=== PATIENT | female | born 1960 | race Caucasian/White ===

== ENCOUNTER → 2024-07-03 | Outpatient (CLI) | payer MEDICARE, MEDICAID, SELFPAY ==
--- NOTE | 2024-07-03 11:45 | XR_ITS ---
Examination: Screening digital mammography, bilateral Computer aided detection 3-D breast Tomosynthesis, bilateral Date and time of exam: July 03, 2024 1135 hrs. No priors Indication: Screening Technique: Nonmagnified MLO, CC views of the breasts to been obtained, reconstructed from 3-D Tomosynthesis images. R2 computer aided detection program utilized for evaluation of suspicious masses and/or abnormal calcifications. 3-D Tomosynthesis images obtained. Findings: Scattered areas of fibroglandular density 12 mm oval asymmetry upper outer right breast Benign calcifications Impression: BI-RADS Category 0: Incomplete: Need additional imaging evaluation 12 mm ovary asymmetry upper outer right breast, recommend follow-up spot tomographic views of this asymmetry as well as right breast sonography to complete the workup
--- NOTE | 2024-07-03 12:00 | XR_ITS ---
Examination: Bone densitometry Date and time of exam:July 03, 2024 1150 hours INDICATIONS: Menopause age 47, family history sister brother osteoporosis Technique: Lumbar spine and hip total bone mineralization values of an calculated. Peak reference and age match control results have been displayed. Findings: Lumbar spine total bone mineralization is0.735 gm/cm2. This is 2.8 standard deviations below peak reference. This is 1.1 standard deviations below age-matched controls. Hip total bone mineralization is 0.686 gm/cm2 This is 2.1 standard deviations below peak reference. This is 0.9 standard deviations below age-matched controls Impression: There is osteoporosis based on lumbar spine measurements. There is osteoporosis based on hip measurements
== END | disposition home or self-care (01) ==
LOC: CDIM 11:22
PROVIDERS: Referring Provider Family Medicine; Visit Provider Family Medicine
DX: Z12.31 Encounter for screening mammogram for malignant neoplasm of breast (principal); N64.89 Other specified disorders of breast; M81.0 Age-related osteoporosis without current pathological fracture
CPT/HCPCS: 77063; 77067; 77080

== ENCOUNTER 2024-07-13 07:55 | Day surgery (SDC) | payer MEDICARE, MEDICAID, SELFPAY ==
[2024-07-10 14:16] VITALS: BMI 29.2
[2024-07-13] VITALS (14 sets, daily range): BP systolic 93–166; BP diastolic 55–80; PULSE 49–83; RESP 12–24; TEMP 36.4–36.6; O2SAT 95–100; BMI 29.7
[2024-07-13] MEDS: fentaNYL CIT INJ 50 mCg/ML AMP 2ML (ASD USE ONLY) IV (10:01)
[2024-07-13] MEDS: ONDANSETRON INJ 2 MG/ML INJ 2 ML 4 MG IV (10:04)
[2024-07-13] MEDS: DiphenhydrAMINE INJ 50 MG/ML VIAL 25 MG IV (10:06)
[2024-07-13] MEDS: MIDAZOLAM INJ 1 MG/ML VIAL 2 ML (ASD USE ONLY) 2 MG IV (10:14)
[2024-07-13] MEDS: MEPERIDINE INJ 25 MG/ML VIAL (ASD USE ONLY) IV (10:20)
== END 2024-07-13 11:15 | disposition home or self-care (01) ==
PROVIDERS: Referring Provider Specialist; Visit Provider Specialist
PROC: 0DBE8ZX Excision of Large Intestine, Via Natural or Artificial Opening Endoscopic, Diagnostic (ICD-10-PCS; CPT 45380; principal; 2024-07-13 13:15)
PROC: (CPT 43239; 2024-07-13 13:15)
DX: K64.9 Unspecified hemorrhoids (principal); K57.30 Diverticulosis of large intestine without perforation or abscess without bleeding; K31.89 Other diseases of stomach and duodenum
CPT/HCPCS: 45378; A4649; J1200; J2175; J2250; J2405; J3010

== ENCOUNTER → 2024-07-24 | Outpatient (CLI) | payer MEDICARE, MEDICAID, SELFPAY ==
--- NOTE | 2024-07-24 10:30 | XR_ITS ---
Examination: Breast ultrasound, unilateral, right complete Date and time of exam: July 24, 2024 1016 hours INDICATIONS: Mammogram July 03, 2024 12 mm focal asymmetry upper outer right breast Technique: Real-time evans scale ultrasonographic imaging performed right breast including all 4 quadrants as well as nipple retroareolar and axillary region. Findings: No cystic or solid mass IMPRESSION: BI-RADS Category 1: Negative study
--- NOTE | 2024-07-24 11:15 | XR_ITS ---
Examination: Diagnostic digital mammography, unilateral, right Computer aided detection 3-D breast Tomosynthesis, unilateral Date and time of exam: July 24, 2024 1034 hours INDICATIONS: Mammogram July 03, 2024 12 mm focal asymmetry outer right breast Technique: Nonmagnified MLO, CC views of the right breast have been obtained, reconstructed from 3-D Tomosynthesis images. R2 computer aided detection program utilized for evaluation of suspicious masses and/or abnormal calcifications. 3-D Tomosynthesis images obtained. Findings: Scattered areas of fibroglandular density Focal asymmetry remains upper outer right breast, probably benign glandular tissue Impression: BI-RADS category 3: Probably benign findings One additional 6 month right mammogram follow-up is needed to document stability of focal asymmetry described above
== END | disposition home or self-care (01) ==
PROVIDERS: PCP Family Medicine; Referring Provider Family Medicine; Visit Provider Family Medicine
DX: R92.331 Mammographic heterogeneous density, right breast (principal); N64.89 Other specified disorders of breast
CPT/HCPCS: 76641; 77061; 77065; G0279

== ENCOUNTER 2024-07-25 23:30 | Emergency (ER) | payer SELFPAY ==
[2024-07-26 00:05] VITALS: BP 133/74; PULSE 64; RESP 16; TEMP 36.5; O2SAT 95
--- NOTE | 2024-07-26 00:09 | XR_ITS ---
Examination: Knee, left , 3 views Technique: Knee AP, lateral, oblique 3 views Date and time of exam: July 26, 2024 at 0019 hrs. Indications: Patient fell last evening with injury to the knee, knee pain Findings: Severe osteopenia Tiny opacities which may be on the skin medial knee Acute fracture traversing the mid patella with up to 14 mm separation at the fracture site Possible small fracture fragments also at the lower margin of the patella Significant blood in the joint space Impression: Patellar fractures as above
--- NOTE | 2024-07-26 00:09 | PD.EDFALL ---
ED Fall Injury RME/HPI General Chief Complaint: Extremity Injury, Lower Stated Complaint: KNEE PAIN Time Seen by Provider: 07/26/24 00:08 Source: patient and EMS Arrival date/time: 07/26/24 00:04 Mode of arrival: EMS Limitations: no limitations RME / HPI RME / HPI Narrative: Dr. Samayoa?s Main ED Evaluation: 63-year-old female who presents to the emergency department with complaints of left knee pain and swelling following a fall. She states that she landed with the impact primarily affecting her left knee. Since the fall, she has experienced significant pain and swelling in the knee, limiting her mobility. The patient denies any trauma to the head, head strike, or loss of consciousness. She also denies neck pain or any other associated injuries. There are no focal neurological complaints, including weakness, numbness, or tingling in the extremities. She does not report any dizziness, confusion, or instability prior to the fall. Related Data Home Medications ?Medication ?Instructions ?Recorded ?Confirmed aspirin 81 mg tablet,delayed 81 mg PO QDAY 05/25/19 07/13/24 release (Aspir-) atorvastatin 40 mg tablet 40 mg PO QPM 05/25/19 07/13/24 carvedilol 3.125 mg tablet 3.125 mg PO BID 05/25/19 07/13/24 coQ10 (ubiquinol) 200 mg capsule 200 mg PO HS 05/25/19 07/13/24 tiotropium bromide 18 mcg capsule 1 cap inhalation QDAY 05/25/19 07/13/24 with inhalation device (Spiriva with HandiHaler) Previous Rx's ?Medication ?Instructions ?Recorded hydrocodone 5 mg-acetaminophen 300 1 tab PO Q6H PRN Left patella 07/26/24 mg tablet Fracture #14 tabs Allergies Allergy/AdvReac Type Severity Reaction Status Date / Time ciprofloxacin Allergy Mild itching, Verified 07/13/24 08:56 morphine AdvReac Intermediate ABDOMINAL Verified 07/13/24 08:56 PAIN Review of Systems Review of Systems Systems Reviewed: All systems reviewed, normal except as documented Past Medical History Past Medical History NEUROLOGIC: Negative Neurological Disorders or Seizures CARDIAC: Positive Cardiac Disorders, Hypercholesterolemia, Congestive Heart Failure and Hypertension RESPIRATORY: Positive Chronic Obstructive Pulmonary Disease (COPD) GASTROINTESTINAL: Positive Gastrointestinal Disorders, Gall Bladder Disease, Diverticulitis and Gastroesophageal Reflux Disease GENITOURINARY: Positive Genitourinary Disorders; Negative Renal Disease REPRODUCTIVE: Positive Previous Pregnancies MUSCULOSKELETAL: Positive Musculoskeletal Disorders, Osteoporosis and Fractures ENDOCRINE: Negative Endocrine Disorders, Diabetes Mellitus Type 1 or Diabetes Mellitus Type 2 HEMATOLOGIC: Negative Blood Disorders OTHER HISTORY: Positive Hospitalization, Blood Transfusion Reaction and Rubella ([place] Measles); Negative Shingles, Falls, Anesthesia Reactions or Cancer Family History FAMILY HISTORY: Positive Family Cardiac Disorders, Family Cancer and Family Surgery; Negative Family Respiratory Disorders or Family Anesthesia Reaction Surgical History SURGICAL: Positive Angiogram, Abdominal Surgery and Tubal Ligation Social History SMOKING STATUS: Former smoker SUBSTANCE USE: does not use ED Exam Narrative Physical exam: GENERAL APPEARANCE: alert and oriented x 4, well-developed, well-nourished, no acute distress VITALS: All vitals were reviewed and the pulse ox is 95% on room air, which is normal according to my interpretation. HEENT: Normocephalic, atraumatic; pupils equal, round, reactive to light; EOMI; mucous membranes pink, moist; oropharynx clear NECK: Supple LUNGS: CTABL; no wheezes, no rales, no rhonchi HEART: Regular rate, regular rhythm; normal S1, S2; no murmurs ABDOMEN: non distended; normal BS; soft, no tenderness, no guarding, no rebound; no masses, no organomegaly, no hernia BACK: no CVA tenderness EXTREMITIES: atraumatic; no edema. Tenderness and swelling of the left knee. There are no signs of contusion, abrasion, laceration, or discoloration NEUROLOGIC: awake; alert and oriented x4; cranial nerves II-XII grossly intact; no focal sensory or motor deficits PSYCHIATRIC: appropriate mood and affect SKIN: warm, dry, normal color; no rashes General Limitations: Present no limitations Course Quality Measures none Orders Category Date Time Status Miscellaneous Nursing Order NOW Care 07/26/24 00:57 Completed XR knee LT 3V Stat Exams 07/26/24 00:09 Taken HYDROmorphone INJ [Dilaudid Inj] Med 07/26/24 01:07 Discontinued 1 mg IVP X1 ONE Vital Signs Vital signs: Vital Signs Temperature 97.7 F 07/26/24 00:05 Pulse Rate 64 07/26/24 00:05 Respiratory Rate 16 07/26/24 00:05 Blood Pressure 133/74 H 07/26/24 00:05 Pulse Oximetry (%) 95 07/26/24 00:05 Oxygen Delivery Method Room Air 07/26/24 00:05 Fall MDM Narrative MDM Narrative:: Scribe Attestation: I, Mike Altamiranoang, am scribing for and in the presence of Dr. Samayoa. Provider Notation: Although this document has been carefully reviewed, there may still be some phonetic and other typographical errors. These errors are purely grammatical due to imperfections in the software program and should not be construed in any way to compromise the substance of the patient's medical care during this visit. Patient data External records reviewed:: [facility] previous records and EMS form Clinical information provided by:: patient and EMS Social determinants that could affect healthcare access:: none Patient has the following chronic illnesses:: see PMH How is presenting disease/condition affected by chronic disease/condition?: uneffected by Evaluation data The following diagnostics were reviewed and interpreted by me:: radiology exam(s) Lab and/or radiology exams considered but not ordered:: n/a Interpretation Summary: I personally reviewed the radiology data and agree with the radiologist's interpretation. LT Knee XR, interpreted by me, left displaced patella fracture Medications / Prescriptions Medications or Prescriptions considered but not ordered:: n/a Medication administrations:: Medication Administration History Discontinued Medications Hydromorphone HCl (Hydromorphone Inj 2 Mg/Ml Vial) 1 mg IVP X1 ONE Stop: 07/26/24 01:08 Last Admin: 07/26/24 01:11 Dose: 1 mg Documented By: CB as above, if any Consultations Consultation(s) initiated? (list below): Yes Consultation #1 (Physician, Specialty, Details): Dr. Rodgers, on-call ortho, made aware of the patient?s HPI, PMHx, lab and/or radiology results. Treatment plan was discussed. Recommendation for knee immobilizer, crutches, discharge and follow-up in his office on Saturday at 2PM. Time: 01:00 Diagnosis Fall Differential Diagnosis: other (knee fracture, knee dislocation, patella dislocation, joint effusion, and contusion) Most likely diagnosis given after review of the tests above:: see clinical impression below Admission Indicated Admission indicated?: not indicated Admission Request Was there a request for admission?: No Disposition Plan Disposition Plan: Discharge Discharge Attestation Discharge Attestation: The patient and all family members were given an opportunity to ask questions and understood the discharge instructions. Discharge instructions specifically effects, indications for sooner follow up or return to the emergency department, and the expected course of current diagnosis. Patient condition: Stable Discharge Plan Plan Patient Disposition: HOME (Self Care) Disposition Comment: Stable for discharge Patient condition on transfer: Stable Prescriptions/Referrals Prescriptions/Med Rec: New hydrocodone-acetaminophen 5-300 mg tablet 1 tab PO Q6H MDD 4 tabs PRN (Reason: Left patella Fracture) Qty: 14 0RF No Action atorvastatin 40 mg Tablet 40 mg PO QPM aspirin [Aspir-81] 81 mg Tablet,Delayed Release (Dr/Ec) 81 mg PO QDAY carvedilol 3.125 mg Tablet 3.125 mg PO BID tiotropium bromide [Spiriva with HandiHaler] 18 mcg Capsule, W/Inhalation Device 1 cap INHALATION QDAY coQ10 (ubiquinol) 200 mg Capsule 200 mg PO HS Referrals: Chavo Rutledge MD [Physician] - 07/27/24 2:00 pm (Dr. Rodgers asked that this patient be seen in the office at 2 PM on 07/27/2024 for displaced left patellar fracture) Problem List Clinical Impression: Fracture, patella Patient/Caregiver Discharge Instructions Discharge Activity: activity as tolerated Education Materials: ED Patella Fracture Additional Instructions: You have a broken left kneecap. The kneecap is called the patella. You should wear the knee immobilizer day and night until you are seen by the orthopedic surgeon which is the bone specialist. You should use crutches if you are going to try to ambulate around your house. Please be very careful when you are doing this as you do want to fall again. The orthopedic surgeon that is on-call for the emergency department tonight is Dr. Rodgers. He asked that you please go to his office on 07/27/2024, at 2 PM and he will help you. You may wind up needing surgery for this fracture or may be it will heal with immobilization. Dr. Rodgers will be able to tell you which is best. If you feel like you are worsening in any way or if your pain becomes too intolerable please return to the ER and we will help you. Print Language: German Stand Alone Forms: [employer] Info., Patient Portal Info Letter
[2024-07-26 00:20] VITALS: PULSE 83; RESP 18; O2SAT 98; BMI 29.3
[2024-07-26] MEDS: HYDROmorphone INJ 2 MG/ML VIAL 1 MG IVP (01:11)
[2024-07-26 02:30] VITALS: BP 122/76; PULSE 76; RESP 18; TEMP 36.7; O2SAT 98
== END 2024-07-26 02:32 | disposition home or self-care (01) ==
LOC: SERX 07-26 01:40
PROVIDERS: Emergency Provider Emergency Medicine; PCP Family Medicine
DX: S82.032A Displaced transverse fracture of left patella, initial encounter for closed fracture (principal); I11.0 Hypertensive heart disease with heart failure; I50.9 Heart failure, unspecified; E78.00 Pure hypercholesterolemia, unspecified; J44.9 Chronic obstructive pulmonary disease, unspecified; Z87.891 Personal history of nicotine dependence; Z88.5 Allergy status to narcotic agent; W19.XXXA Unspecified fall, initial encounter
CPT/HCPCS: 73562; 99284; J3490

== ENCOUNTER 2024-08-02 14:19 | Inpatient (IN) | payer MEDICARE, SELFPAY ==
--- NOTE | 2024-07-30 10:17 | EKG_ITS ---
[facility] Test Date: 2024-07-30 Pat Name: SHILOH FRIAS Department: Room: - Gender: Female Mental Health Clinician: MARY ALICE : 1960 Requested By: Chavo Haro Order Number: [id number] Reading MD: Chavo Haro Measurements Intervals [place] Rate: 64 P: 34 [place]: 155 QRS: 41 QRSD: 70 T: 39 QT: 375 QTc: 389 Interpretive Statements SINUS RHYTHM Compared to ECG 05/25/2019 14:38:39 Sinus bradycardia no longer present /store/S0/[id number].pdf
[2024-07-30 10:26] VITALS: BMI 29.3
[2024-07-30 11:35] LABS: Basophils % (Auto) 0 % (0-2.5); Eosinophils # (Auto) 0.2 Thou/mm3 (0.0-0.5); Eosinophils % (Auto) 2 % (0-10); Hematocrit 36.4 % (36.0-46.0); Immature Granulocytes % (Auto) 0 % (0-0); Immature Granulocytes Auto 0.04 Thou/mm3 (0.00-0.00); Lymphocytes # (Auto) 1.5 Thou/mm3 (1.0-4.8); Lymphocytes % (Auto) 16 % (10-50); Mean Corpuscular Hemoglobin 29.5 pg (25.0-35.0); Mean Corpuscular Volume 89 fL (80-100); Monocytes # (Auto) 0.7 Thou/mm3 (0.0-0.8); Monocytes % (Auto) 7 % (0-12); Neutrophils # (Auto) 7.4 Thou/mm3 (1.8-7.7); Neutrophils % (Auto) 75 % (37-80); Nucleated Red Blood Cell % 0 /100 WBC (0); Platelet Count 268 Thou/mm3 (140-440); RDW Standard Deviation 43.1 fL (36.4-46.3); Red Blood Count 4.07 Miln/mm3 (4.00-5.20); White Blood Count 9.8 Thou/mm3 (3.6-11.0)
[2024-07-30 11:45] LABS: Partial Thromboplastin Time 27.8 Seconds (22.0-36.0); Prothrombin Time 11.4 Seconds (9.0-12.2)
[2024-07-31] VITALS (25 sets, daily range): BP systolic 108–153; BP diastolic 55–87; PULSE 67–94; RESP 14–21; TEMP 36.1–37.1; O2SAT 93–100; BMI 29.2
[2024-07-31] MEDS: RINGERS LACTATED 1000 ML 1,000 ML 20 ML IV (06:41)
--- NOTE | 2024-07-31 07:37 | XR_ITS ---
Examination: Left knee 3 views Fluoroscopy Exam date and time: July 31, 2024 1019 hours INDICATIONS: Acute patellar fracture July 26, 2024, operative reduction internal fixation patellar fracture today TECHNIQUE AND FINDINGS: 3 AP lateral spot fluoroscopic films of the patella Operative reduction internal fixation patellar fracture Satisfactory alignment Fluoroscopy 35 seconds radiation dose 0.79 milligray IMPRESSION: Operative reduction internal fixation patellar fracture with satisfactory alignment
--- NOTE | 2024-07-31 07:41 | CHAP ---
Patient expressed gratitude for prayer before their procedure.
--- NOTE | 2024-07-31 09:31 | XR_ITS ---
Examination: Left knee 2 views Technique one AP lateral left knee 2 views Exam date and time: July 31, 2024 1001 hours INDICATIONS: Postop reduction internal fixation patellar fracture FINDINGS: Postop reduction internal fixation patellar fracture Satisfactory alignment Orthopedic hardware satisfactory position IMPRESSION: Postop reduction internal fixation patellar fracture with satisfactory alignment
--- NOTE | 2024-07-31 09:36 | SUR.PHASEI ---
0936: Pt. arrived with oral airway in place, vitals stable, breathing unlabored, no signs of distress, dressing to left knee CDI, no active bleed noted, bilateral dorsalis pedis pulses strong and regular, cap refill to bilateral feet less than 3 seconds, report received from MD Singh and Miguelito RN.
--- NOTE | 2024-07-31 09:41 | PD.SUROPNT ---
Date of Procedure 07/31/24 Pre Op Diagnosis Displaced fracture of the left patella Post Op Diagnosis Same Procedure ORIF with Sieve plate Findings Refer dictation Procedure Description The patient was given general endotracheal anesthesia. Once satisfactory anesthesia was achieved a tourniquet was placed on left upper thigh. Following that the part was thoroughly prepped and draped. Intravenous antibiotics was given at the time of anesthesia. The patient was checked under C arm and lateral position and the fracture was displaced. After using Esmarch the tourniquet pressure was raised to 3 and 50 mmHg A skin incision was made from the tibial tuberosity extending proximally up to 3 to 4 fingerbreadths proximal to the patella. Deeper dissection was carried out. The skin and the subcu tissue was then raised as a flap. Following that the soft tissue over the patella was reflected as a flap. The fracture was exposed. With the help of curette and [place] the soft tissue interposed within the fracture fragment was removed. The wound was irrigated with antibiotic solution every 4 to 5 minutes Following that with the help of a pointed reduction clamp the fracture was reduced. After some negotiation the fracture was reduced very well. Joint surface maintained it congruity. Following that appropriate sieve was placed over the anterior aspect of the patella. Once satisfactory position was achieved and checked under C arm 2 cortical screws were placed in the proximal end. After that 2 cortical screws were placed the distal end. The vertical limb on the distal end was bent to match the contour of the plate. The side flank was also bent to match the contour of the plate. Following that a few interlocking screws were placed distally and a few were placed proximally. At the end of the procedure the fracture was very well reduced and joint was very well-maintained Wound was irrigated with antibiotic solution every 4 to 5 minutes Closure. The tissue on the anterior aspect of the patella was closed with 2-0 Vicryl in an interrupted fashion. The subcu tissue was closed with 2-0 Vicryl in interrupted fashion. The skin was closed with a andreas After cleaning the wound with hydrogen peroxide solution a sterile dressing was applied. Tourniquet pressure was released Patient tolerated procedure well. Estimated blood loss 5 mL. Further management. Patient will be nonweightbearing at least for 6 to 8 weeks. Following that patient may be sent for physical therapy. Prognosis. Fair to good Anesthesia GETA and other Pathology / specimen None Estimated Blood Loss 5 Surgeon Chavo Rutledge MD Surgical Staff Operation Date: 07/31/24 07:30 Case Staff Anesthesiologist: Edgar Singh RN First Assistant: Alta Gomez
[2024-07-31] MEDS: fentaNYL CIT INJ 50 mCg/ML AMP 2ML 25 MCG IV ×4 (09:47→14:10)
[2024-07-31] MEDS: ACETAMINOPHEN IVPB 1,000 MG/100 ML VIAL 250 MG IV (09:47)
[2024-07-31] MEDS: CYCLObenzaPRINE 5 MG TABLET 10 MG PO (09:56)
[2024-07-31] MEDS: oxyCODONE HCL 5 MG IR TAB PO (10:02)
--- NOTE | 2024-07-31 10:08 | ESHP_ITS ---
RE: SHILOH FRIAS : 1960 DATE OF ADMISSION: 07/31/2024 HISTORY OF PRESENT ILLNESS: The patient came to my office on 07/27/2024 for detailed history and physical examination. The patient presented to me earlier with history of fall resulting in injury to her left knee. The patient went to the emergency room. X-ray was obtained, which revealed a displaced fracture of the left patella. The patient was given a knee immobilizer and was sent to my office. PAST MEDICAL HISTORY: The patient has a history of high blood pressure. No history of diabetes mellitus, asthma, seizure, chest pain, myocardial infarction, or bleeding disorder. PAST SURGICAL HISTORY: Wrist surgery. DRUG HISTORY: The patient is taking; 1. Alendronate. 2. Hydrocodone. 3. Spiriva. 4. Carvedilol. 5. Atorvastatin. 6. Lisinopril. ALLERGIES: TO MORPHINE . FAMILY HISTORY AND SOCIAL HISTORY: The patient denies smoking, drinking, is not working and is retired. PHYSICAL EXAMINATION: GENERAL: Normal built lady. VITAL SIGNS: Pulse 78 per minute. Blood pressure is 130/76. NECK: Soft, supple. No masses felt. Trachea is centrally placed. CARDIOVASCULAR: First and second heart sounds normal. No murmur heard. LUNGS: Bilateral vesicular breath sounds. CHEST: Clear. ABDOMEN: Soft. No masses felt. Bowel sounds present. EXTREMITIES: Left knee examination reveals swelling. There is ecchymosis and bruise. Active range of motion was not tested due to pain. Neurovascularly, it was intact. DIAGNOSTIC DATA: X-ray showed displaced fracture of the left patella. ASSESSMENT AND PLAN: Diagnosis and prognosis was explained to the patient and her . The patient was advised to have surgical fixation of plate or K-wire and cerclage wire. Detailed discussion took place. With the help of pictures and diagram, the procedure was explained. Risks with anesthesia was explained and that includes, but not limited to reaction to anesthetic agents, cardiac arrest, rarely it might be fatal. Risks with operation includes infection and if that happens, the patient may need further surgical procedure. Other risks include delayed healing, wound dehiscence, etc. Sometimes there is a metal failure and there is a possibility of plate getting dislodged. There is a risk of nonhealing or delayed healing. No guarantees given regarding functional outcome of the left knee or left lower limb. After discussing at length about the risks, benefits, limitations, and realistic outcome, the patient and the family want to proceed with surgery. Appropriate lab work is done. Surgery is booked for 07/31/2024. DT: 09:53:33 TT: 10:08:00 Ref: [id number] - TID: [id number]
--- NOTE | 2024-07-31 11:01 | SUR.PHASEII ---
Plan to keep pt. for overnight observations for pain management. Per MD Rutledge, have hospitalist admit pt., MD Scruggs made aware. Orders for consult have been placed. transmission supervisor aware of pt. staying overnight. Family made aware as well.
--- NOTE | 2024-07-31 11:10 | SUR.PHASEII ---
1110: Pt. AAOx4, vitals stable, breathing unlabored, no complaint of pain or nasuea, dressing to left knee CDI, no active bleed, noted, report given to elliot BOWEN to resume care.
--- NOTE | 2024-07-31 11:33 | SUR.PHASEII ---
Report from Humberto BOWEN
--- NOTE | 2024-07-31 11:51 | PD.RESCONSUL ---
HPI Data of Consult Consult date: 08/19/24 Requesting Physician: Chavo Rutledge MD Attending Provider: Chavo Rutledge MD Primary Care Provider: Eloise Arrieta MD Consult Narrative History of present illness: Patient is a pleasant 63 year old female with PMH of HFpEF, HTN, HLD who presents to the hospital for L patellar fracture repair after a ground level fall at home on 07/26. She was seen at the ER, sent home, and returned for repair today. Patient underwent ORIF of the L patella with Dr. Rodgers 07/31. Internal medicine consulted for pain management. Patient has no acute complaints at this time other than pain. PMH: HTN, HFpEF, CAD Meds: coreg 3.125mg po BID, lisinopril 10mg QDAY, atorvastatiin 20 HS, aspirin HS, spiriva SH: ambulates at baseline. Denies smoking, alcohol, use of illicit drugs Surgical history: appendectomy, cholecystecotmy, tubal ligation, angiogram Allergies: ciprofloxacin, morphine (stomach pain) PCP: Dr. Luis Arrieta, medical economics consultant Dr. Jacques cc:: cc: Chavo Rutledge MD Review of Systems Review of Systems Systems Reviewed: All systems reviewed, normal except as documented Exam Vital Signs Temp Pulse Resp BP Pulse Ox O2 Flow Rate 97.5 F 75 19 136/71 H 95 2 07/31/24 11:00 07/31/24 11:00 07/31/24 11:00 07/31/24 11:07/31/24 11:07/31/24 09:51 Narrative Exam Constitutional: NAD. Well-appearing female, alert, awake, interactive, answering questions appropriately HEENT: NCAT. Vision grossly intact. Respiratory: CTAB bilaterally. Cardiac: RRR. Abdomen: Soft, non-distended, non-tender. No guarding, no rebound. MSK: No B/L LE edema. L knee in brace. Able to move toes. Skin: Warm, dry, intact. Tattoos noted. Neuro: Motor and sensation grossly intact. Psychiatric: Appropriate mood and affect. Results Labs 08/01/24 04:13 08/01/24 04:13 Labs: Short CBC 07/30/24 Range/Units 10:55 WBC 9.8 (3.6-11.0) Thou/mm3 Hgb 12.0 (12.0-16.0) g/dL Hct 36.4 (36.0-46.0) % Plt Count 268 (140-440) Thou/mm3 Quality Measures Quality Measures VTE prophylaxis Medications Home Medications and Allergies Home Medications ?Medication ?Instructions ?Recorded ?Confirmed ?Type aspirin 81 mg tablet,delayed 81 mg PO QDAY 05/25/19 07/30/24 History release (Aspir-) atorvastatin 40 mg tablet 20 mg PO QPM 05/25/19 07/31/24 History carvedilol 3.125 mg tablet 3.125 mg PO BID 05/25/19 07/31/24 History coQ10 (ubiquinol) 200 mg capsule 200 mg PO HS 05/25/19 07/31/24 History tiotropium bromide 18 mcg capsule 1 cap inhalation QDAY 05/25/19 07/31/24 History with inhalation device (Spiriva with HandiHaler) alendronate 70 mg tablet 70 mg PO QWEEK 07/30/24 07/31/24 History lisinopril 10 mg tablet 10 mg PO QDAY 07/30/24 07/31/24 History Allergies Allergy/AdvReac Type Severity Reaction Status Date / Time ciprofloxacin Allergy Mild itching, Verified 07/31/24 06:26 morphine AdvReac Intermediate ABDOMINAL Verified 07/31/24 06:26 PAIN Visit Medications Aspirin (Aspirin Ec 81 Mg Tabec) 81 mg PO QDAY TRACIE Stop: 08/31/24 08:59 Atorvastatin Calcium (Atorvastatin Calcium 20 Mg Tablet) 20 mg PO QPM TRACIE Stop: 08/30/24 20:59 Carvedilol (Carvedilol 3.125 Mg Tablet) 3.125 mg PO BID TRACIE Stop: 08/30/24 20:59 Lactated Ringer's (Lactated Ringers) 1,000 mls @ 20 mls/hr IV .Q24H ONE Stop: 08/01/24 05:59 Last Admin: 07/31/24 06:41 Dose: 20 mls/hr Acetaminophen (Ofirmev Inj) 1,000 mg in 100 mls @ 250 mls/hr IV Q6HR TRACIE Stop: 08/01/24 00:23 Last Admin: 07/31/24 09:47 Dose: 250 mls/hr Lisinopril (Lisinopril 2.5 Mg Tablet) 10 mg PO QDAY [facility] Stop: 08/31/24 08:59 Non-Formulary Medication (Tiotropium [place] [Spiriva With Handihaler]) 1 cap IH QDAY [facility] Stop: 08/31/24 08:59 Discontinued Medications Cyclobenzaprine HCl (Cyclobenzaprine 5 Mg Tablet) 10 mg PO X1 ONE Stop: 07/31/24 09:53 Last Admin: 07/31/24 09:56 Dose: 10 mg Fentanyl Citrate (Fentanyl Cit Inj 50 Mcg/Ml Amp 2ml) 25 mcg IV Q5M PRN PRN Reason: PAIN SCALE 1-3 (mild Stop: 07/31/24 10:20 Last Admin: 07/31/24 10:22 Dose: 25 mcg Hydromorphone HCl (Hydromorphone Inj 2 Mg/Ml Vial) 0.2 mg IV Q5M PRN PRN Reason: PAIN 1-6 (mild-mod Stop: 07/31/24 10:21 Cefazolin Sodium (Ancef 2gm Ivpb) 2 gm in 100 mls @ 200 mls/hr IV X1 ONE Stop: 07/31/24 06:29 Last Admin: 07/31/24 11:13 Dose: Not Given Ondansetron HCl (Ondansetron Inj 2 Mg/Ml Inj 2 Ml) 4 mg IV X1 ONE Stop: 07/31/24 08:21 Oxycodone HCl (Oxycodone Hcl 5 Mg Ir Tab) 5 mg PO X1 ONE Stop: 07/31/24 09:54 Last Admin: 07/31/24 10:02 Dose: 5 mg Assessment & Plan Plan Patient is a pleasant 63 year old female with PMH of HFpEF, HTN, HLD who presents to the hospital for L patellar fracture repair s/p ORIF 07/31. Internal medicine consulted for pain management. #L Patellar Fracutre s/p ORIF 07/31/2023 L patellar fracture from GLF, repaired 07/31 with ORIF - Pain management: Tyel[place], [place] #HTN #HLD #HFpEF - Restart home coreg, statin, aspirin, lisinopril Health Maintenance Disposition: Consult for pain management for L patella fracture s/p ORIF Diet and fluids: regular DVT prophylaxis: heparin bid GI prophylaxis: none CODE STATUS: FULL I have reviewed and discussed the patient's care with my attending, Dr. Brayan Scruggs MD PGY-3 Attending Provider Attestation/Addendum I have discussed and was present for the essential components of the history, physical examination, diagnosis, and treatment plan with the resident. I agree with the patient's care as documented by the resident and amended herein by me. Reynaldo Schmidt, DO. Patient seen and evaluated this AM. Consult for orthopedic surgery, Dr. Rodgers. Home medications resumed for chronic conditions, will focus on pain control through the weekend. Patient awake and alert in PACU, will continue to monitor closely through the weekend until Dr Rutledge returns. Although this document has been carefully reviewed, there may still be some phonetic and other typographical errors. These errors are purely grammatical due to imperfections in the software program and should not be construed in any way to compromise the substance of the patient's medical care during this visit.
--- NOTE | 2024-07-31 12:06 | SUR.PHASEII ---
Report to Humberto BOWEN
--- NOTE | 2024-07-31 14:09 | SUR.OPER ---
Implant: 2.[address] [facility] [address]T [address] SS/3-HOLE REF [id number] LOT [id number] EXP 12/14/33 X 1
--- NOTE | 2024-07-31 20:00 | SUR.PHASEII ---
pt awake and alert, breathing unlabored on 2l nc. v/s stable. pt dressing to left lower extremity cdi. report called to Lubna BOWEN. pt will be transferred to room at this time.
[2024-07-31] MEDS: HEPARIN SOD INJ 5000 UNIT/ML VIAL SC (21:15)
[2024-07-31] MEDS: HYDROcodone/APAP 5/325 TABLET 1 TAB PO (21:15)
[2024-07-31] MEDS: carVEDILOL 3.125 MG TABLET PO (21:15)
[2024-07-31] MEDS: ATORVASTATIN CALCIUM 20 MG TABLET PO (21:17)
--- NOTE | 2024-07-31 21:20 | PC.NURSE ---
Patient to transfer to higher level of care to [facility], call from Ernestina received regarding having an open bed for patient. Report given to Val BOWEN [phone], patient to go to [address] [place], room [address] Patient [facility] at 2118 via gurney with 2 ambulance personnel. Last set of V/S 115/72, T 98.0, HR 84, O2 94%, RR 16, no pain reported.
[2024-08-01] VITALS (11 sets, daily range): BP systolic 121–175; BP diastolic 68–96; PULSE 16–90; RESP 16–91; TEMP 36.3–36.6; O2SAT 96–97; BMI 12.0
[2024-08-01] MEDS: HYDROcodone/APAP 5/325 TABLET 1 TAB PO ×3 (04:31→12:38)
[2024-08-01 05:47] LABS: Basophils % (Auto) 0 % (0-2.5); Eosinophils % (Auto) 0 % (0-10); Hematocrit 32.9 % (36.0-46.0); Hemoglobin 10.8 g/dL (12.0-16.0); Immature Granulocytes % (Auto) 1 % (0-0); Immature Granulocytes Auto 0.07 Thou/mm3 (0.00-0.00); Lymphocytes # (Auto) 1.3 Thou/mm3 (1.0-4.8); Lymphocytes % (Auto) 9 % (10-50); Mean Corpuscular HGB Conc 32.8 g/dl (31.0-37.0); Mean Corpuscular Hemoglobin 29.3 pg (25.0-35.0); Mean Corpuscular Volume 89 fL (80-100); Monocytes % (Auto) 7 % (0-12); Neutrophils # (Auto) 12.8 Thou/mm3 (1.8-7.7); Neutrophils % (Auto) 84 % (37-80); Nucleated Red Blood Cell % 0 /100 WBC (0); Platelet Count 283 Thou/mm3 (140-440); RDW Standard Deviation 43.6 fL (36.4-46.3); Red Blood Count 3.68 Miln/mm3 (4.00-5.20); White Blood Count 15.1 Thou/mm3 (3.6-11.0)
[2024-08-01 06:47] LABS: Anion Gap 7 (7-16); BUN/Creatinine Ratio 36 Ratio (12-20); Blood Urea Nitrogen 25 mg/dL (9-23); Calcium 9.2 mg/dL (8.3-10.6); Chloride 108 mMol/L (98-107); Creatinine (Component) 0.7 mg/dL (0.6-1.3); Estimated Creatinine Clearance 81.8 mL/min (>60); Glucose 134 mg/dL (74-106); Osmolality,Calculated 289 (275-295); Potassium 4.6 mMol/L (3.4-5.1); Sodium 142 mMol/L (136-145); eGFR > 60 See Note
[2024-08-01] MEDS: HEPARIN SOD INJ 5000 UNIT/ML VIAL SC ×2 (08:33→21:16)
[2024-08-01] MEDS: Lisinopril 2.5 MG TABLET 10 MG PO (08:33)
[2024-08-01] MEDS: ASPIRIN EC 81 MG TABEC PO (08:34)
[2024-08-01] MEDS: PANTOPRAZOLE 40 MG TABLET PO (10:51)
[2024-08-01] MEDS: traMADol HCL 50 MG TABLET PO (10:51)
--- NOTE | 2024-08-01 11:16 | ESPR_ITS ---
Documentation for date of: 08/01/24 Subjective Subjective Interval history: Patient endorses pain this morning, not getting relief with [place]. Placed orders for scheduled tramadol and Lyrica. PT was ordered. Exam Vital Signs Temp Pulse Resp BP Pulse Ox O2 Del Method O2 Flow Rate 97.8 F 73 16 142/76 H 97 Room Air 2 08/01/24 07:54 08/01/24 08:34 08/01/24 07:54 08/01/24 08:34 08/01/24 07:54 08/01/24 07:54 08/01/24 01:41 Narrative Exam Constitutional: Well nourished Head: Normocephalic/Atraumatic Eyes: no conjunctival injection , symmetrical lids. ENMT: Moist Mucous Membranes CVS: Regular rate and rhythm RESP:no increased work of breathing, equal chest rise and fall, on room air MSK: Left leg in brace, surgical site wrapped with [place] bandage, knee tender with movement and palpation Skin: Warm to touch, Dry. Neuro: Alert and oriented Psych: Appropriate mood and affect. Objective Labs 08/01/24 04:13 08/01/24 04:13 Labs: Laboratory Results - last 24 hr 08/01/24 04:13 WBC 15.1 H D RBC 3.68 L Hgb 10.8 L Hct 32.9 L MCV 89 MCH 29.3 MCHC 32.8 RDW Std Deviation 43.6 Plt Count 283 Neut % (Auto) 84 H Lymph % (Auto) 9 L [place] % (Auto) 7 Eos % (Auto) 0 Baso % (Auto) 0 Neut # (Auto) 12.8 H Lymph # (Auto) 1.3 [place] # (Auto) 1.0 H Eos # (Auto) 0.0 Baso # (Auto) 0.0 Immature Gran # (Auto) 0.07 H Absolute Nucleated RBC 0.00 Immature Gran % 1 H Nucleated RBC % 0 Sodium 142 Potassium 4.6 Chloride 108 H Carbon Dioxide 27.0 Anion Gap 7 BUN 25 H Creatinine 0.7 Estim Creat Clear Calc 81.8 eGFR > 60 BUN/Creatinine Ratio 36 H Glucose 134 H Calculated Osmolality 289 Calcium 9.2 Quality Measures Quality Measures VTE prophylaxis Assessment & Plan Assessment Current Active Medications: Generic Name Dose Route Start Last Admin Trade Name Freq PRN Reason Stop Dose Admin Acetaminophen 650 mg 07/31/24 11:49 Acetaminophen 325 Mg Tablet PO 03/16/25 11:48 Q6H PRN Fever >100.4 or pain 1-3 Hydrocodone Bitart/Acetaminophen 1 tab 08/01/24 10:18 Hydrocodone/Apap 5/325 Tablet PO 08/05/24 11:48 Q4HR PRN PAIN SCALE 7-10(Sev Aspirin 81 mg 08/01/24 09:00 08/01/24 08:34 Aspirin Ec 81 Mg Tabec PO 08/31/24 08:59 81 mg QDAY TRACIE Administration Atorvastatin Calcium 20 mg 07/31/24 21:00 07/31/24 21:17 Atorvastatin Calcium 20 Mg Tablet PO 08/30/24 20:59 20 mg QPM TRACIE Administration Carvedilol 3.125 mg 07/31/24 21:00 08/01/24 08:34 Carvedilol 3.125 Mg Tablet PO 08/30/24 20:59 Not Given BID TRACIE Heparin Sodium (Porcine) 5,000 unit 07/31/24 21:00 08/01/24 08:33 Heparin Sod Inj 5000 Unit/Ml Vial SC 08/14/24 20:59 5,000 unit BID TRACIE Administration Lisinopril 10 mg 08/01/24 09:00 08/01/24 08:33 Lisinopril 2.5 Mg Tablet PO 08/31/24 08:59 10 mg QDAY TRACIE Administration Non-Formulary Medication 1 cap 08/01/24 09:00 Tiotropium [place] [Spiriva With Handihaler] IH 08/31/24 08:59 QDAY TRACIE Ondansetron HCl 4 mg 07/31/24 11:49 Ondansetron Inj 2 Mg/Ml Inj 2 Ml IV 08/30/24 11:48 Q6H PRN NAUSEA OR VOMITING Protocol Pantoprazole Sodium 40 mg 08/01/24 10:15 08/01/24 10:51 Pantoprazole 40 Mg Tablet PO 08/31/24 10:14 40 mg QDAY TRACIE Administration Pregabalin 25 mg 08/01/24 14:00 Pregabalin 25 Mg Capsule PO 08/31/24 13:59 TID TRACIE Sennosides 1 tab 07/31/24 11:49 Senna Tablet PO 08/30/24 11:48 QDAY PRN constipation Protocol Tramadol HCl 50 mg 08/01/24 10:14 08/01/24 10:51 Tramadol Hcl 50 Mg Tablet PO 08/06/24 10:13 50 mg Q4HR PRN Administration PAIN Protocol Plan Patient is a pleasant 63 year old female with PMH of HFpEF, HTN, HLD who presents to the hospital for L patellar fracture repair s/p ORIF 07/31. Internal medicine consulted for pain management. #L Patellar Fracutre s/p ORIF 07/31/2023 L patellar fracture from GLF, repaired 07/31 with ORIF Pain management: -Tylenol, [place] and tramadol as needed -Scheduled Lyrica 25 mg 3 times daily -Patient refusing morphine and Dilaudid, history of abdominal pain with these medications #HTN #HLD #HFpEF - Restart home coreg, statin, aspirin, lisinopril Health Maintenance Disposition: Consult for pain management for L patella fracture s/p ORIF Diet and fluids: regular DVT prophylaxis: heparin bid GI prophylaxis: none CODE STATUS: FULL I have reviewed and discussed the patient's care with my attending, Dr. Brayan Gomez DO, PGY1 Attending Provider Attestation/Addendum I have discussed and was present for the essential components of the history, physical examination, diagnosis, and treatment plan with the resident. I agree with the patient's care as documented by the resident and amended herein by me. Reynaldo Schmidt DO. Patient seen and evaluated this AM. Patient doing well, she does state intermittent mitten episodes of a sharp stabbing pain in her surgical site. She states she cannot take Dilaudid or morphine due to stomach pain, we did try tramadol which appeared to work however she said the [place] works best which will up to [place] 10 mg. We will also start Protonix for the patient. Orthopedic surgery, Dr. Rodgers will return on Saturday in which we will get further recommendations from him. Although this document has been carefully reviewed, there may still be some phonetic and other typographical errors. These errors are purely grammatical due to imperfections in the software program and should not be construed in any way to compromise the substance of the patient's medical care during this visit.
[2024-08-01] MEDS: PREGABALIN 25 MG CAPSULE PO ×2 (14:39→21:16)
[2024-08-01] MEDS: HYDROcodone/APAP 10/325 TAB PO ×2 (16:54→21:15)
[2024-08-01] MEDS: ATORVASTATIN CALCIUM 20 MG TABLET PO (21:15)
[2024-08-01] MEDS: carVEDILOL 3.125 MG TABLET PO (21:15)
--- NOTE | 2024-08-01 21:42 | PC.NURSE ---
patient has a few red dots on face, patient states she already has one before she came to the hospital, patient states not itchy or painful. Informed Dr. Garcia, per MD continue to monitor for changes, informed patient to let us know if it starts itching, spreading, or any other symptoms.
[2024-08-02] VITALS (9 sets, daily range): BP systolic 97–142; BP diastolic 60–78; PULSE 78–94; RESP 17–18; TEMP 36.1–36.7; O2SAT 94–97
[2024-08-02] MEDS: HYDROcodone/APAP 10/325 TAB PO ×6 (00:55→21:48)
[2024-08-02] MEDS: PREGABALIN 25 MG CAPSULE PO ×3 (05:04→21:48)
[2024-08-02 06:08] LABS: Basophils # (Auto) 0.1 Thou/mm3 (0.0-0.2); Basophils % (Auto) 1 % (0-2.5); Eosinophils # (Auto) 0.4 Thou/mm3 (0.0-0.5); Eosinophils % (Auto) 4 % (0-10); Hematocrit 35.4 % (36.0-46.0); Hemoglobin 11.5 g/dL (12.0-16.0); Immature Granulocytes % (Auto) 0 % (0-0); Immature Granulocytes Auto 0.04 Thou/mm3 (0.00-0.00); Lymphocytes # (Auto) 2.2 Thou/mm3 (1.0-4.8); Lymphocytes % (Auto) 22 % (10-50); Mean Corpuscular HGB Conc 32.5 g/dl (31.0-37.0); Mean Corpuscular Hemoglobin 29.4 pg (25.0-35.0); Mean Corpuscular Volume 91 fL (80-100); Monocytes # (Auto) 0.9 Thou/mm3 (0.0-0.8); Monocytes % (Auto) 9 % (0-12); Neutrophils # (Auto) 6.4 Thou/mm3 (1.8-7.7); Neutrophils % (Auto) 64 % (37-80); Nucleated Red Blood Cell % 0 /100 WBC (0); Platelet Count 268 Thou/mm3 (140-440); RDW Standard Deviation 43.9 fL (36.4-46.3); Red Blood Count 3.91 Miln/mm3 (4.00-5.20)
[2024-08-02 06:30] LABS: Anion Gap 5 (7-16); BUN/Creatinine Ratio 25 Ratio (12-20); Blood Urea Nitrogen 15 mg/dL (9-23); Calcium 8.9 mg/dL (8.3-10.6); Carbon Dioxide 29.3 mMol/L (20.0-31.0); Chloride 105 mMol/L (98-107); Creatinine (Component) 0.6 mg/dL (0.6-1.3); Estimated Creatinine Clearance 95.5 mL/min (>60); Glucose 109 mg/dL (74-106); Osmolality,Calculated 279 (275-295); Potassium 4.6 mMol/L (3.4-5.1); Sodium 139 mMol/L (136-145); eGFR > 60 See Note
[2024-08-02] MEDS: ASPIRIN EC 81 MG TABEC PO (09:09)
[2024-08-02] MEDS: PANTOPRAZOLE 40 MG TABLET PO (09:09)
[2024-08-02] MEDS: Lisinopril 2.5 MG TABLET 10 MG PO (09:09)
[2024-08-02] MEDS: HEPARIN SOD INJ 5000 UNIT/ML VIAL SC ×2 (09:09→21:51)
[2024-08-02] MEDS: carVEDILOL 3.125 MG TABLET PO ×2 (13:17→21:51)
--- NOTE | 2024-08-02 13:36 | ESPR_ITS ---
<Statement entered by Alejandra Scruggs MD - 08/02/24 14:07> Patient seen at bedside. On norco 10 and pregabalin 25 with good pain control. Initially planned to increase pregabalin but will hold off as patient feels sleepy on it. Does not want toradol or NSAIDs. Will continue pain management and follow up with Dr. Rodgers tomorrow. Alejandra Scruggs MD PGY-3 Documentation for date of: 08/02/24 Subjective Subjective Interval history: Patient is well-appearing. She notes the pain was well-controlled yesterday with the scheduled Lyrica and [place]. Exam Vital Signs Temp Pulse Resp BP Pulse Ox O2 Del Method O2 Flow Rate 97.0 F 94 18 131/65 H 95 Room Air 2 08/02/24 08:00 08/02/24 13:17 08/02/24 08:00 08/02/24 13:17 08/02/24 08:00 08/02/24 08:00 08/01/24 01:41 Narrative Exam Constitutional: Well nourished Head: Normocephalic Eyes: no conjunctival injection , symmetrical lids. ENMT: Moist Mucous Membranes CVS: Regular rate and rhythm RESP:no increased work of breathing, equal chest rise and fall, on room air MSK: Left leg in brace, surgical site wrapped with [place] bandage Skin: Warm to touch, Dry. Neuro: Alert and oriented Psych: Appropriate mood and affect. Objective Labs 08/02/24 04:26 08/02/24 04:26 Labs: Laboratory Results - last 24 hr 08/02/24 04:26 WBC 10.0 D RBC 3.91 L Hgb 11.5 L Hct 35.4 L MCV 91 MCH 29.4 MCHC 32.5 RDW Std Deviation 43.9 Plt Count 268 Neut % (Auto) 64 Lymph % (Auto) 22 [place] % (Auto) 9 Eos % (Auto) 4 Baso % (Auto) 1 Neut # (Auto) 6.4 Lymph # (Auto) 2.2 [place] # (Auto) 0.9 H Eos # (Auto) 0.4 Baso # (Auto) 0.1 Immature Gran # (Auto) 0.04 H Absolute Nucleated RBC 0.00 Immature Gran % 0 Nucleated RBC % 0 Sodium 139 Potassium 4.6 Chloride 105 Carbon Dioxide 29.3 Anion Gap 5 L BUN 15 Creatinine 0.6 Estim Creat Clear Calc 95.5 eGFR > 60 BUN/Creatinine Ratio 25 H Glucose 109 H Calculated Osmolality 279 Calcium 8.9 Quality Measures Quality Measures VTE prophylaxis Assessment & Plan Assessment Current Active Medications: Generic Name Dose Route Start Last Admin Trade Name Freq PRN Reason Stop Dose Admin Acetaminophen 650 mg 07/31/24 11:49 Acetaminophen 325 Mg Tablet PO 08/30/24 11:48 Q6H PRN Fever >100.4 or pain 1-3 Hydrocodone Bitart/Acetaminophen 1 tab 08/01/24 15:32 08/02/24 13:19 Hydrocodone/Apap 10/325 Tab PO 08/06/24 15:31 1 tab Q4HR PRN Administration PAIN Protocol Aspirin 81 mg 08/01/24 09:00 08/02/24 09:09 Aspirin Ec 81 Mg Tabec PO 08/31/24 08:59 81 mg QDAY TRACIE Administration Atorvastatin Calcium 20 mg 07/31/24 21:00 08/01/24 21:15 Atorvastatin Calcium 20 Mg Tablet PO 08/30/24 20:59 20 mg QPM TRACIE Administration Carvedilol 3.125 mg 07/31/24 21:00 08/02/24 13:17 Carvedilol 3.125 Mg Tablet PO 08/30/24 20:59 3.125 mg BID TRACIE Administration Heparin Sodium (Porcine) 5,000 unit 07/31/24 21:00 08/02/24 09:09 Heparin Sod Inj 5000 Unit/Ml Vial SC 08/14/24 20:59 5,000 unit BID TRACIE Administration Lisinopril 10 mg 08/01/24 09:00 08/02/24 09:09 Lisinopril 2.5 Mg Tablet PO 08/31/24 08:59 10 mg QDAY TRACIE Administration Non-Formulary Medication 1 cap 08/01/24 09:00 08/02/24 09:20 Tiotropium [place] [Spiriva With Handihaler] IH 08/31/24 08:59 Not Given QDAY [facility] Ondansetron HCl 4 mg 07/31/24 11:49 Ondansetron Inj 2 Mg/Ml Inj 2 Ml IV 08/30/24 11:48 Q6H PRN NAUSEA OR VOMITING Protocol Pantoprazole Sodium 40 mg 08/01/24 10:15 08/02/24 09:09 Pantoprazole 40 Mg Tablet PO 08/31/24 10:14 40 mg QDAY TRACIE Administration Pregabalin 25 mg 08/02/24 14:00 08/02/24 13:19 Pregabalin 25 Mg Capsule PO 09/01/24 13:59 25 mg TID TRACIE Administration Sennosides 1 tab 07/31/24 11:49 Senna Tablet PO 08/30/24 11:48 QDAY PRN constipation Protocol Plan Patient is a pleasant 63 year old female with PMH of HFpEF, HTN, HLD who presents to the hospital for L patellar fracture repair s/p ORIF 07/31. Internal medicine consulted for pain management. #L Patellar Fracutre s/p ORIF 07/31/2023 L patellar fracture from GLF, repaired 07/31 with ORIF Pain management: -Tylenol, [place] as needed -Scheduled Lyrica 25 mg 3 times daily -Patient refusing morphine and Dilaudid, history of abdominal pain with these medications. Also refusing NSAIDS. -Will consider ordering PT tomorrow. Dr. Rodgers out of town, will reach out to his office tomorrow to get timeline of when he is to return, otherwise will begin to dispo patient #HTN #HLD #HFpEF - Restart home coreg, statin, aspirin, lisinopril Health Maintenance Disposition: Consult for pain management for L patella fracture s/p ORIF Diet and fluids: regular DVT prophylaxis: heparin bid GI prophylaxis: none CODE STATUS: FULL I have reviewed and discussed the patient's care with my attending, Dr. Brayan Gomez DO, PGY1 Attending Provider Attestation/Addendum I have discussed and was present for the essential components of the history, physical examination, diagnosis, and treatment plan with the resident. I agree with the patient's care as documented by the resident and amended herein by me. Reynaldo Schmidt DO. Patient seen and evaluated this AM. No acute events overnight, vital signs stable, patient afebrile, pain well-controlled on [place] 10, no acute complaints, will begin dispo planning tomorrow pending Dr. Rodgers's recommendations. Although this document has been carefully reviewed, there may still be some phonetic and other typographical errors. These errors are purely grammatical due to imperfections in the software program and should not be construed in any way to compromise the substance of the patient's medical care during this visit.
[2024-08-02] MEDS: ATORVASTATIN CALCIUM 20 MG TABLET PO (21:47)
[2024-08-03] VITALS (9 sets, daily range): BP systolic 93–117; BP diastolic 58–67; PULSE 85–93; RESP 16–17; TEMP 36–36.6; O2SAT 94–98
[2024-08-03] MEDS: PREGABALIN 25 MG CAPSULE PO ×3 (05:04→20:42)
[2024-08-03] MEDS: HYDROcodone/APAP 10/325 TAB PO ×4 (05:04→20:42)
[2024-08-03] MEDS: HEPARIN SOD INJ 5000 UNIT/ML VIAL SC (08:48)
[2024-08-03] MEDS: Lisinopril 2.5 MG TABLET 10 MG PO (08:49)
[2024-08-03] MEDS: ASPIRIN EC 81 MG TABEC PO (08:50)
[2024-08-03] MEDS: PANTOPRAZOLE 40 MG TABLET PO (08:50)
[2024-08-03 09:34] LABS: Basophils # (Auto) 0.1 Thou/mm3 (0.0-0.2); Basophils % (Auto) 1 % (0-2.5); Eosinophils # (Auto) 0.7 Thou/mm3 (0.0-0.5); Eosinophils % (Auto) 7 % (0-10); Hemoglobin 11.8 g/dL (12.0-16.0); Immature Granulocytes % (Auto) 0 % (0-0); Immature Granulocytes Auto 0.03 Thou/mm3 (0.00-0.00); Lymphocytes # (Auto) 2.1 Thou/mm3 (1.0-4.8); Lymphocytes % (Auto) 21 % (10-50); Mean Corpuscular HGB Conc 32.8 g/dl (31.0-37.0); Mean Corpuscular Hemoglobin 29.4 pg (25.0-35.0); Mean Corpuscular Volume 90 fL (80-100); Monocytes # (Auto) 0.9 Thou/mm3 (0.0-0.8); Monocytes % (Auto) 9 % (0-12); Neutrophils # (Auto) 6.5 Thou/mm3 (1.8-7.7); Neutrophils % (Auto) 63 % (37-80); Nucleated Red Blood Cell % 0 /100 WBC (0); Platelet Count 290 Thou/mm3 (140-440); RDW Standard Deviation 44.6 fL (36.4-46.3); Red Blood Count 4.02 Miln/mm3 (4.00-5.20); White Blood Count 10.2 Thou/mm3 (3.6-11.0)
[2024-08-03 09:52] LABS: Anion Gap 9 (7-16); BUN/Creatinine Ratio 34 Ratio (12-20); Blood Urea Nitrogen 24 mg/dL (9-23); Calcium 9.3 mg/dL (8.3-10.6); Carbon Dioxide 28.4 mMol/L (20.0-31.0); Chloride 102 mMol/L (98-107); Creatinine (Component) 0.7 mg/dL (0.6-1.3); Estimated Creatinine Clearance 81.8 mL/min (>60); Glucose 119 mg/dL (74-106); Osmolality,Calculated 282 (275-295); Potassium 4.4 mMol/L (3.4-5.1); Sodium 139 mMol/L (136-145); eGFR > 60 See Note
--- NOTE | 2024-08-03 12:03 | ESDS_ITS ---
Planned Discharge Date 08/03/24 DS: Providers Provider Primary care physician: Eloise Arrieta MD Attending Provider on Admission: Chavo Garrison MD Consults: 07/31/24 10:50 Consult to Adult Hospitalist Urgent Comment: CONSULT WITH [facility]PITALIS PER MD GARRISON Consulting Provider: Alejandra Scruggs 08/01/24 10:23 Referral Physical Therapy Routine Comment: Physician Instructions: 08/03/24 09:15 PT [Referral Physical Therapy] Routine Comment: Physician Instructions: Attending Provider on DC: Alejandra Scruggs MD Discharging Provider: Alejandra Scruggs MD DS: Diagnosis Problem List Completed Was Problem List Reviewed/Reconciled?: Yes Hospital Course Hospital Course Hospital course: Patient is a pleasant 63 year old female with PMH of HFpEF, HTN, HLD who presents to the hospital for L patellar fracture repair after a ground level fall at home on 07/26. She was seen at the ER, sent home, and returned for repair on 07/31. Patient underwent ORIF of the L patella with Dr. Garrison on 07/31. Internal medicine consulted for pain management. She was started on norco and pregabalin with good pain management. Her home meds were also restarted. Hospital course was uneventful. Patient worked with physical therapist who recommended care home facility on discharge. Patient to be discharged to care home with the following recommendations: - Do not weight bear for at least 6 to 8 weeks per orthopedic surgery - Take acetaminophen for pain. If pain is still uncontrolled, take norco 10 every 6 hours as needed. - Continue all home medications - Follow up with your primary care physician within 1 week of discharge. If you do not have a primary care physician, please follow up with the [facility] Residents clinic ([phone]) Status at Discharge Overall status at discharge: patient is progressing back to baseline Time Spent with Patient Time attestation: Total time spent providing and/or coordinating discharge services: 35 min Time spent: Greater than 30 minutes Quality: VTE Deep Vein Thrombosis/Pulmonary Embolism Present on Admission: No Exam Vital Signs Temp Pulse Resp BP Pulse Ox O2 Del Method O2 Flow Rate 97.6 F 87 16 109/62 98 Room Air 2 08/03/24 08:00 08/03/24 08:49 08/03/24 08:00 08/03/24 08:49 08/03/24 08:00 08/03/24 08:00 08/01/24 01:41 Narrative Exam Constitutional: Well nourished, well-appearing female Head: Normocephalic Eyes: no conjunctival injection , symmetrical lids. ENMT: Moist Mucous Membranes CVS: Regular rate and rhythm RESP: CTAB MSK: Left leg in brace, able to move b/l LE Skin: Warm to touch, Dry. Neuro: Alert and oriented Psych: Appropriate mood and affect. Discharge Plan Plan Patient Disposition: Xfer Longterm Acute Prescriptions/Referrals Prescriptions/Med Rec: New hydrocodone-acetaminophen 10-325 mg Tablet 1 tab PO Q6H MDD 4 PRN (Reason: Pain) 7 Days Qty: 28 0RF Continued atorvastatin 40 mg Tablet 20 mg PO QPM aspirin [Aspir-81] 81 mg Tablet,Delayed Release (Dr/Ec) 81 mg PO QDAY carvedilol 3.125 mg Tablet 3.125 mg PO BID tiotropium bromide [Spiriva with HandiHaler] 18 mcg Capsule, W/Inhalation Device 1 cap INHALATION QDAY coQ10 (ubiquinol) 200 mg Capsule 200 mg PO HS hydrocodone-acetaminophen 5-325 mg tablet 1 tab PO Q6H MDD 9 PRN (Reason: pain) Qty: 14 0RF alendronate 70 mg tablet 70 mg PO QWEEK Patient Comments: take 1 tablet by mouth ONCE WEEKLY IN THE MORNING, AT LEAST 30 [place]... (REFER TO PRESCRIPTION NOTES). lisinopril 10 mg tablet 10 mg PO QDAY Patient Comments: take 1 tablet by mouth once daily Referrals: Eloise Arrieta MD [Primary Care Provider] - Chavo Garrison MD [Physician] - Patient/Caregiver Discharge Instructions Other Discharge Activity Instructions:: left leg non weight bearing. See in office onJul at 10 am Education Materials: Anesthesia: General Anesthesia, Surgery Anesthesia After, RICE, Preventing Surgical Site Infections, [facility] Orthopedic Print Language: Hebrew Activity Restrictions/Additional Instructions: Follow up with MD Garrison on August 06 at 10AM. Do not put any weight on left leg until MD Garrison says it's ok (non weight bear) Keep dressing clean, dry, and intact. Avoid getting dressing wet. Keep left leg elevated when not in use. Stand Alone Forms: [employer] Award Info., Patient Portal Info Letter Discharge Order Discharge Orders: Discharge (Routine); Ordered 08/03/24 Ordered By: Alejandra Scruggs Quality Discharge Quality Measures VTE prophylaxis Attestestation MD Attestation I have discussed and was present for the essential components of the discharge history, physical examination, diagnosis, and discharge treatment plan with the resident. I agree with the patient's discharge care as documented by the resident and amended herein by me. Reynaldo Schmidt, . The patient understood all discharge instructions, all questions were answered satisfactorily. The patient was instructed to return to the Emergency Department is symptoms worsened or persisted. Per Dr. Rodgers, orthopedic surgeon, no weightbearing on the patient's left leg for 6 to 8 weeks, physical therapy can take place. Patient can continue [place] tens for a week which has been controlling pain, patient cannot tolerate morphine or Dilaudid due to abdominal pain. Patient was stable, afebrile and tolerating p.o. intake upon discharge to SNF. Although this document has been carefully reviewed, there may still be some phonetic and other typographical errors. These errors are purely grammatical due to imperfections in the software program and should not be construed in any way to compromise the substance of the patient's medical care during this visit.
--- NOTE | 2024-08-03 12:18 | PC.SS ---
Ila Martinez is 63-year-old female admitted to Med-Surg for ORIF LT Patella. SS conducted bedside contact with the patient to complete initial assessment and to discuss discharge planning.? Patient confirmed demographic information. Patient identifies her Dominic Martinez [phone] as her surrogate decision maker. Patient resides at home with her . Pt states she is typically able to complete all ADL?s independently, no need for any source of DME. Pts PCP is Dr.Maria Arrieta and her pharmacy of choice is [facility] in [place]. ?DC options discussed and pt wishes to go to rehab for short term due to recent sx, no preference at this time. SS informed pt we will submit referral and provide options once available. Pt may require transportation upon DC. No further intervention required at this time, licensed social worker would be available to address any further concerns. DC Plan: SNF Contact: Dominic Martinez [phone] ? PCP: Eloise Arrieta
--- NOTE | 2024-08-03 12:21 | PC.SS ---
SNF referral submitted via [facility], pending responses for pt choice.
[2024-08-03] MEDS: ATORVASTATIN CALCIUM 20 MG TABLET PO (20:42)
[2024-08-03] MEDS: carVEDILOL 3.125 MG TABLET PO (20:46)
[2024-08-04] VITALS (10 sets, daily range): BP systolic 100–130; BP diastolic 56–76; PULSE 79–95; RESP 16–18; TEMP 36.4–36.6; O2SAT 94–96
[2024-08-04] MEDS: HYDROcodone/APAP 10/325 TAB PO ×2 (04:10→12:10)
[2024-08-04] MEDS: PREGABALIN 25 MG CAPSULE PO ×2 (05:27→14:36)
[2024-08-04] MEDS: Lisinopril 2.5 MG TABLET 10 MG PO (08:34)
[2024-08-04] MEDS: HEPARIN SOD INJ 5000 UNIT/ML VIAL SC ×2 (08:34→21:52)
[2024-08-04] MEDS: ASPIRIN EC 81 MG TABEC PO (08:34)
[2024-08-04] MEDS: PANTOPRAZOLE 40 MG TABLET PO (08:35)
--- NOTE | 2024-08-04 10:49 | CHAP ---
Patient was visited by a Spiritual Care Volunteer on 08/04/2024 between 0900 and 1000 and received comfort, encouragement and/or prayer.
--- NOTE | 2024-08-04 11:16 | ESPR_ITS ---
<Statement entered by Alejandra Scruggs MD - 08/04/24 16:17> I discussed with and supervised my co-resident involved in the care of this patient. I agree with the assessment and plan as documented above. Patient requires 3 midnights for SNF placement. Anticipate discharge 08/05/2023. Continuing pain management. Alejandra Scruggs MD PGY-3 Documentation for date of: 08/04/24 Subjective Subjective Interval history: Patient seen at bedside. No complaints. Pain is well controlled. She is pending placement to SNF and further recs by Dr. Rodgers. Labs and vitals stable. Exam Vital Signs Temp Pulse Resp BP Pulse Ox O2 Del Method O2 Flow Rate 97.9 F 80 18 100/76 96 Room Air 2 08/04/24 07:41 08/04/24 08:34 08/04/24 08:04 08/04/24 08:34 08/04/24 08:04 08/04/24 07:41 08/01/24 01:41 Narrative Exam Constitutional: Well nourished, well-appearing female, comfortable Head: Normocephalic Eyes: no conjunctival injection , symmetrical lids. ENMT: Moist Mucous Membranes CVS: Regular rate and rhythm RESP: CTAB MSK: Left leg in brace, able to move b/l LE Skin: Warm to touch, Dry. Neuro: Alert and oriented Psych: Appropriate mood and affect. Objective Labs 08/03/24 08:52 08/03/24 08:52 Quality Measures Quality Measures VTE prophylaxis Assessment & Plan Assessment Current Active Medications: Generic Name Dose Route Start Last Admin Trade Name Freq PRN Reason Stop Dose Admin Acetaminophen 650 mg 07/31/24 11:49 Acetaminophen 325 Mg Tablet PO 08/30/24 11:48 Q6H PRN Fever >100.4 or pain 1-3 Hydrocodone Bitart/Acetaminophen 1 tab 08/01/24 15:32 08/04/24 04:10 Hydrocodone/Apap 10/325 Tab PO 08/06/24 15:31 1 tab Q4HR PRN Administration PAIN Protocol Aspirin 81 mg 08/01/24 09:00 08/04/24 08:34 Aspirin Ec 81 Mg Tabec PO 08/31/24 08:59 81 mg QDAY RTACIE Administration Atorvastatin Calcium 20 mg 07/31/24 21:00 08/03/24 20:42 Atorvastatin Calcium 20 Mg Tablet PO 08/30/24 20:59 20 mg QPM TRACIE Administration Carvedilol 3.125 mg 08/03/24 14:30 08/03/24 20:46 Carvedilol 3.125 Mg Tablet PO 09/02/24 14:29 3.125 mg BID@1400,2100 TRACIE Administration Protocol Heparin Sodium (Porcine) 5,000 unit 07/31/24 21:00 08/04/24 08:34 Heparin Sod Inj 5000 Unit/Ml Vial SC 08/14/24 20:59 5,000 unit BID TRACIE Administration Lisinopril 10 mg 08/01/24 09:00 08/04/24 08:34 Lisinopril 2.5 Mg Tablet PO 08/31/24 08:59 10 mg QDAY TRACIE Administration Non-Formulary Medication 1 cap 08/01/24 09:00 08/04/24 08:04 Tiotropium [place] [Spiriva With Handihaler] IH 08/31/24 08:59 Not Given QDAY TRACIE Ondansetron HCl 4 mg 07/31/24 11:49 Ondansetron Inj 2 Mg/Ml Inj 2 Ml IV 08/30/24 11:48 Q6H PRN NAUSEA OR VOMITING Protocol Pantoprazole Sodium 40 mg 08/01/24 10:15 08/04/24 08:35 Pantoprazole 40 Mg Tablet PO 08/31/24 10:14 40 mg QDAY TRACIE Administration Pregabalin 25 mg 08/02/24 14:00 08/04/24 05:27 Pregabalin 25 Mg Capsule PO 09/01/24 13:59 25 mg TID RTACIE Administration Sennosides 1 tab 07/31/24 11:49 Senna Tablet PO 08/30/24 11:48 QDAY PRN constipation Protocol Plan Patient is a pleasant 63 year old female with PMH of HFpEF, HTN, HLD who presents to the hospital for L patellar fracture repair s/p ORIF 07/31. Internal medicine consulted for pain management. #L Patellar Fracutre s/p ORIF 07/31/2023 L patellar fracture from GLF, repaired 07/31 with ORIF Pain management: -Tylenol, [place] as needed -Scheduled Lyrica 25 mg 3 times daily -Patient refusing morphine and Dilaudid, history of abdominal pain with these medications. Also refusing NSAIDS. -discharge is pending SNF placement #HTN #HLD #HFpEF - Restart home coreg, statin, aspirin, lisinopril Health Maintenance Disposition: Consult for pain management for L patella fracture s/p ORIF Diet and fluids: regular DVT prophylaxis: heparin bid GI prophylaxis: none CODE STATUS: FULL I have reviewed and discussed the patient's care with my attending, Dr. Coyle and senior Dr. Scruggs. Natividad Sexton PGY1 Attending Provider Attestation/Addendum I reviewed labs, imaging, EKG, home medications and prior available records. Face to face evaluation was performed by me. I have personally examined the patient and discussed assessment and plan with the IM team. I reviewed the resident note and agree with the plan with exceptions as below. Left patellar fracture, acute Left knee pain HFpEF Essential hypertension Hyperlipidemia Status post ORIF Worked with PT: Recommended SNF. Discussed with dialysis social worker. She needs 3 inpatient nights prior to placement
[2024-08-04] MEDS: carVEDILOL 3.125 MG TABLET PO ×2 (14:37→21:51)
--- NOTE | 2024-08-04 15:02 | PC.SS ---
SS follow up note; Patient will discharge tomorrow, she will complete her 3 midnights stay and will disharge to [facility].
[2024-08-04] MEDS: ATORVASTATIN CALCIUM 20 MG TABLET PO (21:50)
[2024-08-04] MEDS: ACETAMINOPHEN 325 MG TABLET 650 MG PO (21:50)
[2024-08-04] MEDS: SENNA TABLET 1 TAB PO (21:51)
[2024-08-05] VITALS: BP 120/58; PULSE 74; RESP 15; TEMP 36.4; O2SAT 95
[2024-08-05] MEDS: HYDROcodone/APAP 10/325 TAB PO ×2 (00:45→14:19)
[2024-08-05 04:00] VITALS: BP 124/60; PULSE 82; RESP 16; TEMP 36.2; O2SAT 95
[2024-08-05] MEDS: GLYCERIN, ADULT 1 EA SUPP 1 EACH PR (05:51)
[2024-08-05 08:00] VITALS: BP 120/64; PULSE 76; RESP 18; TEMP 35.6; O2SAT 95
[2024-08-05] MEDS: HEPARIN SOD INJ 5000 UNIT/ML VIAL SC (08:45)
[2024-08-05 08:46] VITALS: BP 124/60; PULSE 82
[2024-08-05] MEDS: PANTOPRAZOLE 40 MG TABLET PO (08:46)
[2024-08-05] MEDS: ASPIRIN EC 81 MG TABEC PO (08:46)
[2024-08-05] MEDS: Lisinopril 2.5 MG TABLET 10 MG PO (08:46)
--- NOTE | 2024-08-05 09:28 | PD.RESDS ---
Planned Discharge Date 08/05/24 DS: Providers Provider Date of admission: 08/02/24 14:19 Primary care physician: Eloise Arrieta MD Admitting Provider: Chavo Garrison MD Attending Provider on Admission: Chavo Garrison MD Consults: 07/31/24 10:50 Consult to Adult Hospitalist Urgent Comment: CONSULT WITH HOSPITALIS PER MD GARRISON Consulting Provider: Alejandra Scruggs 08/01/24 10:23 Referral Physical Therapy Routine Comment: Physician Instructions: 08/03/24 09:15 PT [Referral Physical Therapy] Routine Comment: Physician Instructions: Attending Provider on DC: Thom Youngblood MD Discharging Provider: Eliezer Gomez DO DS: Diagnosis Problem List Completed Was Problem List Reviewed/Reconciled?: Yes Hospital Course Hospital Course Hospital course: Discharge summary: Patient presented to the ED with a history of fall during previous ED visit on 07/26. X-ray showed displaced fracture of the left patella. Patient followed up with Dr. Rodgers's office outpatient and return to hospital on 07/31 for ORIF of the left patella. Medicine team was consulted for pain management. Pain managed with Lyrica, Tylenol, Delta. PT recommending SNF for rehab. Patient was discharged 08/05 for continued rehab with Tylenol and Delta and 81 mg of aspirin daily for DVT prophylaxis. Discharge instructions: See in Dr Garrison's office on Jul at 10 am. Do not put any weight on left leg until MD Garrison says it's ok (non weight bear) Keep dressing clean, dry, and intact. Avoid getting dressing wet. Keep left leg elevated when not in use. Continue aspirin 81 mg QD until August 15. Discharge diagnosis: #L Patellar Fracutre s/p ORIF 07/31/2023 #HTN #HLD #HFpEF Patient was evaluated and seen by my attending Dr. Coyle, Eliezer Gomez DO, PGY1 Time Spent with Patient Time attestation: Total time spent providing and/or coordinating discharge services: Quality: VTE Deep Vein Thrombosis/Pulmonary Embolism Present on Admission: No Exam Vital Signs Temp Pulse Resp BP Pulse Ox O2 Del Method O2 Flow Rate 97.1 F 82 16 124/60 95 Room Air 2 08/05/24 04:00 08/05/24 08:46 08/05/24 04:00 08/05/24 08:46 08/05/24 04:00 08/05/24 04:00 08/01/24 01:41 Narrative Exam Constitutional: Well nourished Head: Normocephalic Eyes: no conjunctival injection , symmetrical lids. ENMT: Moist Mucous Membranes CVS: Regular rate and rhythm RESP:no increased work of breathing, equal chest rise and fall, on room air MSK: Left leg in brace, surgical site wrapped with Sherwin bandage, no pain with movement Skin: Warm to touch, Dry. Neuro: Alert and oriented Psych: Appropriate mood and affect. Discharge Plan Plan Patient Disposition: Xfer Skilled Nsg Fac (SNF) Prescriptions/Referrals Prescriptions/Med Rec: New hydrocodone-acetaminophen 10-325 mg Tablet 1 tab PO Q6H MDD 4 PRN (Reason: Pain) 7 Days Qty: 28 0RF aspirin [Ecotrin Low Strength] 81 mg Tablet,Delayed Release (Dr/Ec) 81 mg PO BID 13 Days Qty: 26 0RF Continued atorvastatin 40 mg Tablet 20 mg PO QPM carvedilol 3.125 mg Tablet 3.125 mg PO BID tiotropium bromide [Spiriva with HandiHaler] 18 mcg Capsule, W/Inhalation Device 1 cap INHALATION QDAY coQ10 (ubiquinol) 200 mg Capsule 200 mg PO HS hydrocodone-acetaminophen 5-325 mg tablet 1 tab PO Q6H MDD 9 PRN (Reason: pain) Qty: 14 0RF alendronate 70 mg tablet 70 mg PO QWEEK Patient Comments: take 1 tablet by mouth ONCE WEEKLY IN THE MORNING, AT LEAST 30 AL... (REFER TO PRESCRIPTION NOTES). lisinopril 10 mg tablet 10 mg PO QDAY Patient Comments: take 1 tablet by mouth once daily Discontinued aspirin [Aspir-81] 81 mg Tablet,Delayed Release (Dr/Ec) 81 mg PO QDAY Referrals: Eloise Arrieta MD [Primary Care Provider] - Chavo Garrison MD [Physician] - Patient/Caregiver Discharge Instructions Other Discharge Activity Instructions:: left leg non weight bearing. See in Dr Garrison's office on Jul at 10 am. Continue aspirin 81 mg BID until August 15, then switch back to 81 mg daily Nonweightbearing on the affected knee for at least 4 weeks until further instructions by orthopedic surgery Education Materials: Anesthesia: General Anesthesia, Surgery Anesthesia After, RICE, Preventing Surgical Site Infections, [facility] Orthopedic Print Language: Panamanian Activity Restrictions/Additional Instructions: Follow up with MD Garrison on August 06 at 10AM. Do not put any weight on left leg until MD Garrison says it's ok (non weight bear) Keep dressing clean, dry, and intact. Avoid getting dressing wet. Keep left leg elevated when not in use. Stand Alone Forms: [employer] Award Info., Patient Portal Info Letter Discharge Order Discharge Orders: Discharge (Routine); Ordered 08/03/24 Ordered By: Alejandra Scruggs Quality Discharge Quality Measures VTE prophylaxis Attestestation Attestation I reviewed labs, imaging, EKG, home medications and prior available records. Face to face evaluation was performed by me. I have personally examined the patient and discussed assessment and plan with the IM team. I reviewed the resident note and agree with the plan with exceptions as below. Left patellar fracture, acute Left knee pain HFpEF Essential hypertension Hyperlipidemia Status post ORIF Worked with PT: Recommended SNF. She met her mandatory 3 inpatient nights stay Follow-up with orthopedic surgery as outpatient Aspirin 81 mg twice daily for 2 weeks for DVT prophylaxis Time spent is 40 minutes. More than 50% of the time was spent on patient education and coordination of care.
--- NOTE | 2024-08-05 11:00 | CHAP ---
Patient was visited by a spiritual care volunteer 0n 08/05/2024 between 3565 and 1017 and received encouragement, comfort and/or prayer.
--- NOTE | 2024-08-05 11:20 | PC.SS ---
Addendum entered by Darlene South 08/05/24 15:17: SS follow up note; SS was contacted by Anabell from [facility] that do to high levels of calls the ETA was switced to 1700. SS updated Pearl Restorer Kerry and also contacted patient's and Claire from [facility]. Original Note: SS set up transportation for patient through [facility] CINDY was signed by Care Cutter In, Arlette. Family not able to provide payment. ETA was set up for 1500. SS contacted patient's Dominic and updated him in regards to ETA as well as Patients nurse Lois. SS contacted Dona and updated her with ETA. SS will stand by for further needs.
[2024-08-05 12:00] VITALS: BP 109/61; PULSE 91; RESP 16; TEMP 36.7; O2SAT 94
--- NOTE | 2024-08-05 13:33 | PC.NURSE ---
Gave report to Sharyn at [facility]
[2024-08-05 15:30] VITALS: BP 112/67; PULSE 91; RESP 16; TEMP 36.4; O2SAT 94
== END 2024-08-05 16:05 | disposition skilled nursing facility (03) | DRG 516 ==
LOC: S3SX 08-03 11:32 → S2EX 08-04 05:38 → S3SX 08-04 05:38
PROVIDERS: Student in an Organized Health Care Education/Training Program; Admitting Provider Orthopaedic Surgery; PCP Family Medicine; Referring Provider Orthopaedic Surgery; Visit Provider Orthopaedic Surgery
PROC: (CPT 27524; principal; 2024-07-31 07:30)
DX: S82.002A Unspecified fracture of left patella, initial encounter for closed fracture (principal); I50.32 Chronic diastolic (congestive) heart failure; I11.0 Hypertensive heart disease with heart failure; E78.5 Hyperlipidemia, unspecified; W18.30XA Fall on same level, unspecified, initial encounter; I25.10 Atherosclerotic heart disease of native coronary artery without angina pectoris; Y92.009 Unspecified place in unspecified non-institutional (private) residence as the place of occurrence of the external cause; Z88.5 Allergy status to narcotic agent; Z79.899 Other long term (current) drug therapy
CPT/HCPCS: 36415; 73560; 76000; 80048; 80053; 85025; 85610; 85730; 87081; 93005; 97162; J0131; J0690; J1100; J1580; J1643; J1885; J2250; J2405; J2704; J2795; J3010; J3490; J7120; A9270; J0665

== ENCOUNTER → 2024-09-10 | Outpatient (CLI) | payer MEDICARE, SELFPAY ==
--- NOTE | 2024-09-10 15:55 | XR_ITS ---
Examination: Knee, left , 3 views Technique: Knee AP, lateral, oblique 3 views Date and time of exam: September 10, 2024 1607 hours INDICATIONS: History patellar fracture postop reduction internal fixation, pain FINDINGS: Status post operative reduction internal fixation patellar fracture July 31, 2024 Significant healing patellar fracture with satisfactory alignment No acute fracture Consider axillary view follow-up IMPRESSION: Consider axial view of the knee follow-up to assess patellar chondromalacia
== END | disposition home or self-care (01) ==
PROVIDERS: PCP Family Medicine; Referring Provider Orthopaedic Surgery; Visit Provider Orthopaedic Surgery
DX: M25.562 Pain in left knee (principal); Z87.81 Personal history of (healed) traumatic fracture; Z98.890 Other specified postprocedural states
CPT/HCPCS: 73562

== ENCOUNTER 2024-09-25 07:45 | Day surgery (SDC) | payer MEDICARE, SELFPAY ==
[2024-09-24 09:56] VITALS: BMI 29.7
[2024-09-24 10:56] LABS: Basophils # (Auto) 0.1 Thou/mm3 (0.0-0.2); Basophils % (Auto) 1 % (0-2.5); Eosinophils # (Auto) 0.3 Thou/mm3 (0.0-0.5); Eosinophils % (Auto) 5 % (0-10); Hematocrit 38.2 % (36.0-46.0); Hemoglobin 12.6 g/dL (12.0-16.0); Immature Granulocytes % (Auto) 0 % (0-0); Immature Granulocytes Auto 0.02 Thou/mm3 (0.00-0.00); Lymphocytes # (Auto) 1.7 Thou/mm3 (1.0-4.8); Lymphocytes % (Auto) 27 % (10-50); Mean Corpuscular Hemoglobin 29.7 pg (25.0-35.0); Mean Corpuscular Volume 90 fL (80-100); Monocytes # (Auto) 0.7 Thou/mm3 (0.0-0.8); Monocytes % (Auto) 11 % (0-12); Neutrophils # (Auto) 3.3 Thou/mm3 (1.8-7.7); Neutrophils % (Auto) 55 % (37-80); Nucleated Red Blood Cell % 0 /100 WBC (0); Platelet Count 263 Thou/mm3 (140-440); Red Blood Count 4.24 Miln/mm3 (4.00-5.20)
[2024-09-24 11:03] LABS: Partial Thromboplastin Time 27.5 Seconds (22.0-36.0)
[2024-09-24 11:06] LABS: Alanine Aminotransferase 24 U/L (10-49); Albumin, Serum 4.1 gm/dL (3.4-4.8); Albumin/Globulin Ratio 1.2 (1.2-2.2); Alkaline Phosphatase 93 U/L (46-116); Anion Gap 5 (7-16); Aspartate Amino Transferase 28 U/L (0-34); BUN/Creatinine Ratio 26 Ratio (12-20); Bilirubin,Total 0.8 mg/dL (0.3-1.2); Blood Urea Nitrogen 18 mg/dL (9-23); Calcium 9.2 mg/dL (8.3-10.6); Calcium (Corrected) 9.2 mg/dL (8.5-10.1); Chloride 107 mMol/L (98-107); Creatinine (Component) 0.7 mg/dL (0.6-1.3); Estimated Creatinine Clearance 82.3 mL/min (>60); Globulin 3.5 gm/dL (2.3-3.5); Glucose 105 mg/dL (74-106); Osmolality,Calculated 283 (275-295); Potassium 4.3 mMol/L (3.4-5.1); Sodium 141 mMol/L (136-145); Total Protein 7.6 gm/dL (5.7-8.2); eGFR > 60 See Note
--- NOTE | 2024-09-24 13:29 | ESHP_ITS ---
RE: SHILOH FRIAS : 1960 DATE OF ADMISSION: 09/25/2024 HISTORY OF PRESENT ILLNESS: The patient was seen by me on 09/24/2024 for detailed preop history and physical examination. The patient is status post ORIF of the left patella. Because of the osteoporosis, the 2-3 Pop screws have penetrated through the articular surface and causing severe pain. The patient is unable to flex the knee. The surgical procedure was performed on 07/31/2024. The present procedure is being done to remove the 2 screws and may be replaced with the other screws. PAST MEDICAL HISTORY: The patient has a history of high blood pressure. No history of diabetes mellitus, asthma, seizures, chest pain, myocardial infarction, or bleeding disorder. PAST SURGICAL HISTORY: Wrist surgery and is status post ORIF of the left patella. DRUG HISTORY: The patient is on alendronate. ALLERGIES: MORPHINE. FAMILY HISTORY AND SOCIAL HISTORY: The patient denies smoking, drinking and is not working. PHYSICAL EXAMINATION: GENERAL: Normal built lady. VITAL SIGNS: Pulse 88 per minute. Blood pressure 130/76. NECK: Soft, supple. No masses felt. Trachea is centrally placed. CARDIOVASCULAR SYSTEM: First and second hearts are normal. No murmur heard. LUNGS: Bilateral vesicular breath sounds. CHEST: Clear. ABDOMEN: Soft. No masses felt. Bowel sounds present. EXTREMITIES: Left knee examination revealed a very well-healed scar. There is no infection. Range of motion is not possible due to significant pain. DIAGNOSTIC DATA: X-ray revealed a very well-aligned patella. However, a couple of screws seem to be projecting beyond the articular surface hitting the anterior femoral condyle. ASSESSMENT AND PLAN: The patient and the family were explained that most likely it is due to the screw hitting the anterior femoral condyle that actually happened or may have happened due to osteoporosis and some resorption of the bone at the fracture site or in the proximal part. The removal of the screws and possible replacement was discussed in detail. Risk with anesthesia was explained and that includes, but not limited to reaction to anesthetic agents, cardiac arrest, rarely it might be fatal. Risks with operation includes infection and if that happens, the patient may need further surgical procedure. Other risks include delayed healing, wound dehiscence, etc. No guarantee is given regarding the outcome of the procedure and/or relief of symptoms. Surgery is booked for 09/25/2024. Appropriate lab work was done. DT: 12:39:12 TT: 13:27:00 Ref: [id number] - TID: [id number]
--- NOTE | 2024-09-24 14:14 | SUR.PREOP ---
Pt notified to come in tomorrow at 0800 for surgery.
[2024-09-25] VITALS (10 sets, daily range): BP systolic 123–157; BP diastolic 68–89; PULSE 73–84; RESP 12–20; TEMP 36.4–36.7; O2SAT 95–100; BMI 30.7
[2024-09-25] MEDS: RINGERS LACTATED 1000 ML 1,000 ML 20 ML IV (08:36)
--- NOTE | 2024-09-25 09:53 | XR_ITS ---
Examination: Left knee 6 views Fluoroscopy Exam date and time: September 25, 2024 1149 hrs. Indications: Hardware removal and replacement. Technique And Findings: 6 spot fluoroscopic films of the knee Patellar orthopedic hardware noted on all of the spot fluoroscopic images Femoral condyles and tibia as well as fibula appear intact Impression: Fluoroscopy as above, radiation dose 3.8 milligray fluoroscopy time 41 seconds
--- NOTE | 2024-09-25 12:21 | XR_ITS ---
Examination: Left knee 2 views Technique one AP lateral left knee 2 views Exam date and time: September 25, 2024 1243 hrs. Indications: Postop knee surgery Findings: Operative reduction internal fixation patellar fracture Orthopedic hardware satisfactory position Prominent osteopenia Impression: Patellar orthopedic hardware satisfactory position
[2024-09-25] MEDS: fentaNYL CIT INJ 50 mCg/ML AMP 2ML 25 MCG IV (12:42)
[2024-09-25] MEDS: ACETAMINOPHEN IVPB 1,000 MG/100 ML VIAL 250 MG IV (12:56)
--- NOTE | 2024-09-25 13:04 | SUR.PHASEI ---
1151: Pt received in [facility] via gurney. Report from Delaney BOWEN and Dr. Huffman. Pt groggy. Is arousable with eye opening then drifts back to sleep. Resp even, unlabored. VS stable. Dressing to left knee dry, clean, intact. Bilateral pedal pulses strong, regular. No c/o pain. 1220: Pt has been resting quietly with no complaints voiced. Resp even, unlabored. VS stable. Dressing remains dry, clean, intact with bilateral pedal pulses strong, regular.
--- NOTE | 2024-09-25 13:10 | SUR.PHASEII ---
1242: Pt more awake, alert. Resp even, un l
--- NOTE | 2024-09-25 13:10 | SUR.PHASEII ---
1242: Pt more awake, alert. Resp even, unlabored. VS stable. Pt has c/o pain to left knee. Rates pain level 5/10. Pain medication given per order. 1256: Pt continues to have pain to left knee. Acetaminophen IV being given at this time. 1310: Pt more comfortable. Sitting up tolerating po fluid with no difficulty swallowing and no n/v.
--- NOTE | 2024-09-25 18:03 | SUR.PHASEII ---
1330: Pt stated she is much more comfortable and is happy with pain relief. 1345: Pt fully awake, oriented x3. VS stable. Dressing is dry, clean, intact. Pt dressed and assisted to her personal wheelchair. Refused to use hospital transport chair. Ambulation steady. Pt and son stated understanding of discharge instructions. Pt discharged from [facility] in stable condition.
--- NOTE | 2024-09-29 14:06 | ESOP_ITS ---
Date of Procedure 09/25/24 Pre Op Diagnosis Is status post ORIF left patella with plate and screws. Protruding implant Adhesion of quadriceps tendon Post Op Diagnosis Same Procedure 1. Removal of 4 screws and replacing it. 2. .Repair of patellar tendon 3. Lysis of adhesions of quadriceps tendon and manipulation Findings See dictation Procedure Description Patient was given general anesthesia. Once satisfactory anesthesia achieved a tourniquet was placed on left upper thigh. Following that part was thoroughly prepped and draped. After using Esmarch the tourniquet pressure was raised to 350 mmHg. Intravenous antibiotics was given at the time of anesthesia Under C arm the lateral view was obtained on continuous basis. A skin incision was made in the proximal aspect of the old. Deeper dissection was carried out. A skin in the subcu tissue and of fascia was raised as a flap. It was recognized that 3 screws were cutting through the patellar intra- articular surface. The those the screws were removed and replaced with a smaller size screws. Similarly on the lower side there was one bent hand which I believe probably may be interfering with the movement hence that was also removed. Patient was repeatedly checked under C arm. The wound was irrigated with antibiotic solution every 4 to 5 minutes Following that the gentle manipulation of the left knee was done. Gradually the knee joint was flexed and up to 90 degrees of flexion was achieved. Following that the soft tissue was then closed with 2-0 Vicryl and the skin was closed with the help of Prolene. Wound was cleaned with hydrogen peroxide solution and a sterile dressing was applied. Tourniquet pressure released. Patient tolerated procedure very well. Estimated blood loss 20 mL. Anesthesia GETA Pathology / specimen None Estimated Blood Loss 20 Surgeon Chavo Rutledge MD Surgical Staff Operation Date: 09/25/24 10:15 Case Staff Anesthesiologist: Edgar Singh RN First Assistant: Miguelangel Llamas RN First Assistant: Alta Cortes
== END 2024-09-25 13:45 | disposition home or self-care (01) ==
PROVIDERS: Anesthesiology; PCP Family Medicine; Referring Provider Orthopaedic Surgery; Visit Provider Orthopaedic Surgery
PROC: (CPT 20680; principal; 2024-09-25 10:00)
DX: T84.093A Other mechanical complication of internal left knee prosthesis, initial encounter (principal); M67.862 Other specified disorders of synovium, left knee
CPT/HCPCS: 20680 ×2; 29884; 36415; 73560; 76000; 80053; 85025; 85610; 85730; A4217; C1713; J0131; J0690; J1100; J1580; J1885; J2250; J2405; J2704; J3010; J3490; J7030; J7120; J0665

== ENCOUNTER → 2024-10-20 | Outpatient (CLI) | payer MEDICARE, SELFPAY ==
--- NOTE | 2024-10-20 | XR_ITS ---
Examination: Knee, left , 3 views Technique: Knee AP, lateral, oblique 3 views Date and time of exam: October 20, 2024 1159 hours INDICATIONS: Acute fractures patella July 26, 2024, postop reduction internal fixation FINDINGS: Significantly healing fractures patella with satisfactory alignment Stable position small displaced bone fragment at the inferior margin of the patella Severe osteopenia IMPRESSION: Significant healing main fractures of the patella with satisfactory alignment
== END | disposition home or self-care (01) ==
PROVIDERS: PCP Family Medicine; Referring Provider Orthopaedic Surgery; Visit Provider Orthopaedic Surgery
DX: S82.002D Unspecified fracture of left patella, subsequent encounter for closed fracture with routine healing (principal); Z98.890 Other specified postprocedural states; X58.XXXD Exposure to other specified factors, subsequent encounter
CPT/HCPCS: 73562

== ENCOUNTER → 2024-10-29 | Outpatient (CLI) | payer MEDICARE, SELFPAY ==
--- NOTE | 2024-10-29 13:44 | XR_ITS ---
Examination: CT left knee, without contrast. 2-D sagittal reconstructions. 2-D coronal reconstructions. 3-D reconstructions. Date and time of exam:October 29, 2024 1413 hours INDICATIONS: Left knee pain 3 months postop CTDI: vol (mGy):11 DLP: (mGycm):304 Technique: Multiple 1.25 mm axial sections of the left knee without intravenous contrast have been obtained. 2-D sagittal and coronal reconstructions have been obtained. 3-D reconstructions have been obtained. Low dose protocols were performed. One or more of the following dose reduction techniques were used; automated exposure control, adjustment of the mA and/or KV according to patient size, use of iterative reconstruction technique. Findings: Prominent osteopenia Healed fracture patella with satisfactory alignment Orthopedic hardware satisfactory position Distal femur femoral condyles tibial plateau proximal tibia fibular head and neck intact Small knee effusion IMPRESSION: Significant healing patellar fractures with satisfactory alignment
== END | disposition home or self-care (01) ==
LOC: SDIM 13:20 → SCAT 13:23
PROVIDERS: PCP Family Medicine; Referring Provider Orthopaedic Surgery; Visit Provider Orthopaedic Surgery
DX: S82.002A Unspecified fracture of left patella, initial encounter for closed fracture (principal); X58.XXXA Exposure to other specified factors, initial encounter; Z98.890 Other specified postprocedural states
CPT/HCPCS: 73700

== ENCOUNTER → 2025-01-20 | Outpatient (CLI) | payer MEDICARE, SELFPAY ==
--- NOTE | 2025-01-20 10:45 | XR_ITS ---
Examination: Diagnostic digital mammography, unilateral, right Computer aided detection 3-D breast Tomosynthesis, unilateral Date and time of exam: January 20, 2025 10:23 AM INDICATIONS: Mammogram July 24, 2024 focal asymmetry upper outer right breast Technique: Nonmagnified MLO, CC views of the right breast have been obtained, reconstructed from 3-D Tomosynthesis images. R2 computer aided detection program utilized for evaluation of suspicious masses and/or abnormal calcifications. 3-D Tomosynthesis images obtained. Findings: Scattered areas of fibroglandular density Focal asymmetry upper outer right breast probably benign glandular tissue again depicted Impression: BI-RADS category 0: Incomplete: Need additional imaging evaluation Recommend right breast sonography follow-up to confirm glandular tissue upper outer right breast
== END | disposition home or self-care (01) ==
LOC: CDIM 10:07
PROVIDERS: PCP Family Medicine; Referring Provider Family Medicine; Visit Provider Family Medicine
DX: R92.2 Inconclusive mammogram (principal)
CPT/HCPCS: 77061; 77065; G0279

== ENCOUNTER → 2025-02-26 | Outpatient (CLI) | payer MEDICARE, SELFPAY ==
--- NOTE | 2025-02-26 11:30 | XR_ITS ---
Examination: Breast ultrasound, unilateral, right complete Date and time of exam: February 26, 2025 1109 hours INDICATIONS: Right breast tenderness and palpable mass noted beginning 6 months ago Technique: Real-time evans scale ultrasonographic imaging performed right breast including all 4 quadrants as well as nipple retroareolar and axillary region. Findings: No cystic or solid mass IMPRESSION: BI-RADS Category 1: Negative study
== END | disposition home or self-care (01) ==
PROVIDERS: PCP Family Medicine; Referring Provider Family Medicine; Visit Provider Family Medicine
DX: R92.2 Inconclusive mammogram (principal)
CPT/HCPCS: 76641